=== PATIENT | female | born 1955 | race Caucasian/White ===

== ENCOUNTER 2025-11-07 06:33 | Day surgery (SDC) | payer MEDICARE, SELFPAY ==
[2025-10-23 14:00] VITALS: BMI 29.6
[2025-11-07] VITALS (12 sets, daily range): BP systolic 123–193; BP diastolic 68–86; BMI 29.6
[2025-11-07] MEDS: NORMOSOL-R/PLASMALYTE-A 1000 IV (09:54)
[2025-11-07] MEDS: NEURONTIN 300 MG PO (09:54)
[2025-11-07] MEDS: TYLENOL 1000 MG PO (09:54)
[2025-11-07] MEDS: HEPARIN 5000 UNITS SC (10:00)
--- NOTE | 2025-11-07 11:50 | OR.RPT ---
Operative Report
Operative Report
DATE OF OPERATION: November 07, 2025
PREOPERATIVE DIAGNOSIS: Thyroid Hyperthyroidism w/o crisis - E0500
POSTOPERATIVE DIAGNOSIS: Same
SURGEON: Maged Vega M.D.
OPERATION: Total Thyroidectomy - 31390
ANESTHESIA: GET
ESTIMATED BLOOD LOSS: 2 cc
DRAINS: None
SPECIMEN: total thyroid
FINDINGS: none
COMPLICATIONS: None
PROCEDURE:
The patient was taken to the operating room and placed in the usual supine position. After adequate general endotracheal anesthesia was established, the patient�s neck was extended, prepped, and draped in the typical sterile fashion. A 4 cm
transcervical incision was made two fingerbreadths above the sternal notch. The skin incision was made with the #15 blade, which was taken through the skin into the subcutaneous tissue. The underlying platysma muscle was divided, and subplatysmal
flaps were created superiorly to the thyroid cartilage and inferiorly to the sternal notch. Strap muscles were identified and at the midline.
Attention was turned to the patient�s right thyroid lobe. The right thyroid lobe was mobilized medially. During this process, the right middle thyroid vein and inferior thyroid artery were dissected and ligated with Ligasure. Next, the right
superior pole was taken down by dissecting and transecting the superior pole vessels with a Ligasure. The right thyroid lobe was mobilized medially. During this process, the right recurrent laryngeal nerve was identified and preserved throughout its
entire course. The right inferior parathyroid gland was identified and preserved.
Next, attention was turned to the patient�s left thyroid lobe. The left thyroid lobe was mobilized medially. During this process, the left middle thyroid vein and inferior thyroid artery were dissected and ligated with Ligasure. Next, the left
superior pole was taken down by dissecting and transecting the superior pole vessels with a Ligasure. The left thyroid lobe was mobilized medially. During this process, the left recurrent laryngeal nerve was identified and preserved throughout its
entire course. The left superior parathyroid gland was identified and preserved. The total thyroid was resected from the trachea and sent to the pathology department.
After achieving adequate hemostasis, the strap muscle was approximated with #3-0 Vicryl in a running fashion, and the platysma muscles were reapproximated with #3-0 Vicryl in an interrupted manner. The skin was then closed with #4-0 Monocryl in a
running subcuticular technique. Steri-strips and sterile dressings were applied. The patient tolerated the procedure well. The final instrument, needle, and sponge counts were correct.
== END 2025-11-07 14:15 | disposition home or self-care (01) ==
LOC: SDS 06:33
PROVIDERS: ATTENDING PHYSICIAN Surgery; FAMILY PHYSICIAN Internal Medicine
DX: E05.00 Thyrotoxicosis with diffuse goiter without thyrotoxic crisis or storm (principal); C73 Malignant neoplasm of thyroid gland
CPT/HCPCS: 60240; 88307